=== PATIENT | female | born 1975 | race Caucasian/White ===

== ENCOUNTER 2022-12-17 16:23 | Outpatient (OUT) | payer BC, SELFPAY ==
--- NOTE | 2022-12-17 16:49 | XR_ITS ---
The [address] [address] Patient Name: CHRIS SAENZ MRN: [id number] date: 1975 Sex: F Assigned Patient Location: [facility] Current Patient Location: [facility] Accession/Order Number: [id number] Exam Date: 12/17/2022 17:02 Report Date: 12/17/2022 18:20 At the request of: MICHELLE HICKEY Procedure: XR knee LT 3V EXAM: Left knee HISTORY: . PAIN IN LEFT KNEE M25.562 . COMPARISON: None. TECHNIQUE: 3 views FINDINGS: No fracture or dislocation of left knee is noted. Small spurs are noted involving the knee. Surrounding soft tissues are unremarkable. XR/XR knee LT 3V IMPRESSION: 1. No acute bony abnormality left knee. 2. Early arthritic changes of the left knee. Electronically authenticated by: SILVER BA Date: 12/17/2022 18:20
== END 2022-12-17 16:24 | disposition home or self-care (01) ==
PROVIDERS: PCP Family Medicine; Visit Provider Family Medicine
DX: M25.562 Pain in left knee (principal)
CPT/HCPCS: 73562

== ENCOUNTER 2022-12-27 10:22 | Outpatient (OUT) | payer BC, SELFPAY ==
--- NOTE | 2022-12-27 11:33 | MR_ITS ---
The [address] [address] Patient Name: CHRIS SAENZ MRN: [id number] date: 1975 Sex: F Assigned Patient Location: MRI Current Patient Location: MRI Accession/Order Number: [id number] Exam Date: 12/27/2022 11:33 Report Date: 12/27/2022 21:12 At the request of: DERIAN BONILLA Procedure: MR knee LT wo con EXAM: MR knee LT wo con HISTORY: Left knee pain COMPARISON: Left knee x-ray 12/17/2022 TECHNIQUE: Multiplanar, multi sequential MRI sequences were performed FINDINGS: Again demonstrated is the large knee effusion. Small popliteal cyst is present. Scattered superficial subcutaneous soft tissue edema with no loculated collection, mass or cyst. Osteophytes are present off all articular surfaces of the medial compartment predominance. Osteophytes are present off the medial femoral condyle and tibial plateau. No fracture, dislocation or subluxation. Full-thickness cartilage loss of the inferior aspect of the medial patella facet with underlying subchondral cysts. Partial thickness chondral irregularity of the central patella apex cartilage (sagittal 10). Full-thickness chondral defect of the central trochlea adjacent partial thickness irregularities (sagittal 12 and axial 10). Full-thickness chondral irregularity of the meniscal weightbearing aspect of the medial femoral condyle with underlying marrow edema. Subchondral cysts within the medial posterior aspect of the medial tibial plateau with presumed overlying cartilage irregularities. The lateral femoral condyle and tibial plateau cartilage exhibit no gross visualized irregularity. Better visualized on the prior x-ray is chondrocalcinosis pyrophosphate deposition of the menisci bilaterally. The medial meniscus body is extruded into the medial gutter. Complex tearing of the medial meniscus body that extends into the umbilicus tear of the posterior horn that communicates with the inferior articular surface. No gross irregularity the root ligaments. Lateralization of the lateral meniscus body into the lateral gutter. Degenerative fraying of the lateral meniscus at the junction of the posterior body and posterior horn (coronal 21 and sagittal 6). The root ligaments are unremarkable. Mild chronic stress-related changes of the medial collateral ligament with no discrete acute irregularity. Anterior cruciate and posterior cruciate ligaments are unremarkable. No visualized irregularity of the lateral complex ligaments and tendons. No patella tilt or subluxation. Edema of Hoffa's fat. The patella tendon and visualized extensor mechanism are unremarkable. MR/MR knee LT wo con IMPRESSION: 1. Tearing of the medial and lateral menisci. 2. Full and partial thickness chondral irregularities of the patellofemoral and medial femorotibial compartment. 3. Large knee effusion. 4. Popliteal cyst. 5. 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 Electronically authenticated by: SILVER PARMAR Date: 12/27/2022 21:12
== END 2022-12-27 10:23 | disposition home or self-care (01) ==
LOC: MRI 10:22
PROVIDERS: PCP Family Medicine; Visit Provider Nurse Practitioner Family
DX: M25.562 Pain in left knee (principal); M71.22 Synovial cyst of popliteal space [Baker], left knee; S83.282A Other tear of lateral meniscus, current injury, left knee, initial encounter; S83.242A Other tear of medial meniscus, current injury, left knee, initial encounter
CPT/HCPCS: 73721

== ENCOUNTER 2024-01-04 08:53 | Emergency (ER) | payer SELFPAY ==
[2024-01-04] VITALS (18 sets, daily range): BP systolic 127–149; BP diastolic 83–91; PULSE 57–98; TEMP 37.1; O2SAT 97–100; BMI 26.6
--- NOTE | 2024-01-04 09:32 | ECG_ITS ---
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
--- NOTE | 2024-01-04 09:32 | CT_ITS ---
The [address] [address] Patient Name: CHRIS SAENZ MRN: [id number] date: 1975 Sex: F Assigned Patient Location: ED.MAIN Current Patient Location: Accession/Order Number: [id number] Exam Date: 01/04/2024 11:00 Report Date: 01/04/2024 11:42 At the request of: LEILA OROPEZA Procedure: CT abdomen pelvis w con EXAM: CT abdomen pelvis w con HISTORY: RUQ pain COMPARISON: None. TECHNIQUE: Axial CT imaging was performed through the abdomen and pelvis with intravenous contrast. Multiplanar reformats were performed. Dose reduction techniques were achieved by using automated exposure control and/or adjustment of mA and/or kV according to patient size and/or use of iterative reconstruction technique. FINDINGS: Lung bases: Bilateral paraseptal emphysema. Lung bases are clear. No pleural effusion. GI upper: Unremarkable. Liver: Normal size and contour. Gallbladder: No significant abnormality. No cholelithiasis. Biliary system: No intra or extrahepatic biliary ductal dilatation. Spleen: Normal size. Pancreas: Unremarkable. Adrenal glands: Normal adrenal glands. Kidneys/ureters: Normal contours. No hydronephrosis. No nephrolithiasis or ureterolithiasis. Vessels: No aneurysm. Lymph Nodes: No lymphadenopathy. Small bowel: No wall thickening or dilatation. Colon: No wall thickening or dilatation. Appendix: Appendix is identified with normal appearance. Peritoneal cavity: No free fluid or pneumoperitoneum. Lower : Hysterectomy. Otherwise unremarkable. The urinary bladder is unremarkable. Bones: No acute bony abnormality. Soft tissues: No acute finding. Additional findings: None. CT/CT abdomen pelvis w con IMPRESSION: No acute abnormality. Electronically authenticated by: HAYDEN RODGERS Date: 01/04/2024 11:42
--- NOTE | 2024-01-04 09:32 | XR_ITS ---
The [address] [address] Patient Name: CHRIS SAENZ MRN: [id number] date: 1975 Sex: F Assigned Patient Location: ED.MAIN Current Patient Location: ER Accession/Order Number: [id number] Exam Date: 01/04/2024 11:00 Report Date: 01/04/2024 11:27 At the request of: LEILA OROPEZA Procedure: XR chest 2V PROCEDURE: XR chest 2V DATE: 01/04/2024 10:00 AM CDT COMPARISONS: None. CLINICAL INDICATION: 48 years Female right sided chest pain FINDINGS: The cardiomediastinal silhouette and pulmonary vasculature are within normal limits. There is slight scattered increased interstitial markings throughout all lung daniel consistent with mild chronic lung changes. There is no evidence of pleural effusion or pneumothorax. XR/XR chest 2V IMPRESSION: Evidence of mild chronic lung changes. Chest radiograph is otherwise within normal limits. Electronically authenticated by: SOFÍA BOONE Date: 01/04/2024 11:27
[2024-01-04] MEDS: KETOROLAC TROMETHAMINE 30 MG/ML VIAL IVP (09:51)
[2024-01-04] MEDS: ONDANSETRON PF 4 MG/2 ML VIAL IV (09:51)
[2024-01-04] MEDS: 0.9 % SODIUM CHLORIDE 1,000 ML 999 ML IV (09:52)
[2024-01-04 09:55] LABS: Basophils Absolute Auto 0.1 10^3/uL (0.0-0.1); Basophils Percent Auto 1.2 % (0.2-2.0); Eosinophils Absolute Auto 0.3 10^3/uL (0.0-0.7); Eosinophils Percent Auto 4.4 % (0.9-7.0); Hematocrit 45.3 % (36.0-48.0); Hemoglobin 14.8 g/dL (12.0-16.0); Immature Granulocytes Abs Auto 0.02 10^3/uL (0.00-0.03); Immature Granulocytes Pct Auto 0.3 % (0.0-0.5); Lymphocytes Absolute Auto 2.4 10^3/uL (1.2-3.8); Lymphocytes Percent Auto 37.3 % (20.5-60.0); Mean Corpuscular HGB Conc 32.7 g/dL (29.9-35.2); Mean Corpuscular Hemoglobin 30.2 pg (26.7-34.0); Mean Corpuscular Volume 92.4 fL (81.0-99.0); Mean Platelet Volume 8.6 fL (9.5-13.5); Monocytes Absolute Auto 0.7 10^3/uL (0.3-0.8); Monocytes Percent Auto 10.3 % (1.7-12.0); Neutrophils Percent Auto 46.5 % (43.0-75.0); Platelet Count 274 10^3/uL (150-450); Red Cell Distribution Width 13.3 % (11.0-15.0); White Blood Count 6.4 10^3/uL (4.0-11.0)
--- NOTE | 2024-01-04 10:24 | ED_ITS ---
HPI HPI - General Adult General Chief complaint: Back Pain/Injury Stated complaint: TORSO PAIN Time Seen by Provider: 01/04/24 09:16 Source: patient Mode of arrival: walk-in Limitations: no limitations History of Present Illness HPI narrative: 48-year-old female to the emergency department chief complaint of right flank/right upper quadrant pain. She reports symptoms started approximately 24 hours ago. Associated mild nausea without vomiting. No chest pain or shortness of breath. No injuries. She denies any dysuria, urgency, hematuria. She denies . She denies any fever, sweats, chills. Reports the pain is worse with movement. She has never had symptoms like this before.No medications taken prior to arrival. She did drink some liquids this morning. Related Data Previous Rx's ?Medication ?Instructions ?Recorded cyclobenzaprine 10 mg tablet 10 mg PO BID PRN muscle spasm #10 01/04/24 tabs naproxen 500 mg tablet 500 mg PO BID PRN pain #14 tabs 01/04/24 Allergies Allergy/AdvReac Type Severity Reaction Status Date / Time acetaminophen [From Percocet] Allergy Intermediate Rash Verified 01/04/24 09:00 oxycodone [From Percocet] Allergy Intermediate Rash Verified 01/04/24 09:00 Opioid HPI Opioid Management Most Recent Opioid Data: Last ED Pain Assessment 01/04/24 11:27 Review of Systems ROS Status of ROS 10 or more systems reviewed and unremark able except as noted in history and below Exam Narrative Exam Narrative: VITALS: I have reviewed the triage vital signs. GENERAL: Well developed, well appearing adult in no acute distress. NEURO: Alert and oriented. Moves all extremities. Face is symmetric and expressive. EYES: PERRL. No scleral icterus or conjunctival injection. No discharge. HENT: Normocephalic, atraumatic. Hearing is grossly intact. Nares grossly patent and without discharge. Mucous membranes moist. NECK: No JVD. Patient moves neck without restriction. CARDIO: Rhythm regular. Normal rate. No murmur, rub, or gallop. Pulses equal bilaterally in the upper and lower extremity. No lower extremity edema. PULM: Lungs clear to auscultation in all daniel. No wheezes, rales, or rhonchi. No conversational dyspnea. No splinting, stridor, or accessory muscle use. GI/: Abdomen is soft. Mild right upper quadrant tenderness. No CVA tenderness. Normoactive bowel sounds. EXTREMITIES: Symmetric muscle bulk. No joint swelling. No clubbing, cyanosis, or deformity. SKIN: Warm and dry. Normal turgor. No rash or lesions appreciated. PSYCH: Mood, affect, and interaction is appropriate to the setting. Constitutional Vital Signs, click to edit/add: Last Vital Signs Temp 98.7 F 01/04/24 08:57 Pulse 60 01/04/24 11:23 Resp 25 H 01/04/24 11:23 BP 142/91 H 01/04/24 11:23 Pulse Ox 100 01/04/24 11:23 O2 Del Method Room Air 01/04/24 09:03 Course Vital Signs Vital signs: Vital Signs Temperature 98.7 F 01/04/24 08:57 Pulse Rate 83 01/04/24 08:57 Respiratory Rate 18 01/04/24 08:57 Blood Pressure 149/88 H 01/04/24 08:57 Pulse Oximetry 98 01/04/24 08:57 Oxygen Delivery Method Room Air 01/04/24 08:57 Temperature 98.7 F 01/04/24 08:57 Pulse Rate 60 01/04/24 11:23 Respiratory Rate 25 H 01/04/24 11:23 Blood Pressure 142/91 H 01/04/24 11:23 Pulse Oximetry 100 01/04/24 11:23 Oxygen Delivery Method Room Air 01/04/24 09:03 Medical Decision Making [facility] Narrative Medical decision making narrative: Well-appearing 48-year-old female to the emergency department chief complaint of pain in the right upper abdomen radiating around to the back. Vital stable, the patient is afebrile. Basic labs ordered, hepatic function and lipase. Will order urinalysis. CT scan abdomen pelvis is ordered for evaluation of the gallbladder and for kidney stone. Toradol and Zofran are given for symptoms. Patient agrees with this plan. PERC negative, effectively ruling out VTE in this low risk patient. HEART score 1, low risk. Chest x-ray without any acute findings. CT scan without acute findings. Lab work is unremarkable. No evidence of urinary tract infection. EKG without evidence of ischemia. Troponin is very low with onset greater than 3 hours, effectively ruling out ACS per ECS guidelines. Patient reexamined. Pain responded significantly to Toradol. She feels much improved. Naproxen and Flexeril for treatment at home. She will be referred back to Dr. Savage for repeat evaluation. Suspect musculoskeletal etiology. Expected clinical course discussed. Return precautions were discussed. All questions were answered. Patient was discharged home. Medical Records Medical records reviewed: Yes I reviewed the patient's medical records Lab Data Lab results reviewed: Yes I reviewed the patient's lab results Labs: Lab Results 01/04/24 01/04/24 Range/Units 09:46 10:40 WBC 6.4 (4.0-11.0) 10^3/uL RBC 4.90 (4.20-5.40) 10^6/uL Hgb 14.8 (12.0-16.0) g/dL Hct 45.3 (36.0-48.0) % MCV 92.4 (81.0-99.0) fL MCH 30.2 (26.7-34.0) pg MCHC 32.7 (29.9-35.2) g/dL RDW 13.3 (11.0-15.0) % Plt Count 274 (150-450) 10^3/uL MPV 8.6 L (9.5-13.5) fL Neut % (Auto) 46.5 (43.0-75.0) % Lymph % (Auto) 37.3 (20.5-60.0) % Ashley % (Auto) 10.3 (1.7-12.0) % Eos % (Auto) 4.4 (0.9-7.0) % Baso % (Auto) 1.2 (0.2-2.0) % Neut # (Auto) 3.0 (1.4-6.5) 10^3/uL Lymph # (Auto) 2.4 (1.2-3.8) 10^3/uL Ashley # (Auto) 0.7 (0.3-0.8) 10^3/uL Eos # (Auto) 0.3 (0.0-0.7) 10^3/uL Baso # (Auto) 0.1 (0.0-0.1) 10^3/uL Abs Immat Gran (auto) 0.02 (0.00-0.03) 10^3/uL Imm/Tot Granulo (auto) 0.3 (0.0-0.5) % Sodium 143 (136-145) mmol/L Potassium 4.7 (3.5-5.1) mmol/L Chloride 107 (98-107) mmol/L Carbon Dioxide 29.3 (21.0-32.0) mmol/L Anion Gap 11.4 BUN 9.0 (7.0-18.0) mg/dL Creatinine 0.86 (0.55-1.02) mg/dL Est GFR ( Amer) >60 (>=60) Est GFR (Non-Af Amer) >60 (>=60) BUN/Creatinine Ratio 10.5 Glucose 105 (74-106) mg/dL Calcium 9.3 (8.5-10.1) mg/dL Total Bilirubin 0.4 (0.2-1.0) mg/dL AST 20 (15-37) U/L ALT 30 (14-59) U/L Alkaline Phosphatase 90 (46-116) U/L Troponin I High Sens <4.0 L (4.0-51.3) pg/mL Total Protein 7.6 (6.4-8.2) g/dL Albumin 3.6 (3.4-5.0) g/dL Globulin 4.0 g/dL Albumin/Globulin Ratio 0.9 Lipase 57.0 (16.0-77.0) U/L Urine Color Lt. yellow (YELLOW) Urine Clarity Clear (CLEAR) Urine pH 6.5 (5.0-9.0) Ur Specific Eclectic 1.025 (1.005-1.025) Urine Protein Negative (NEG/TRACE) mg/dL Urine Glucose (UA) Negative (NEGATIVE) mg/dL Urine Ketones Negative (NEGATIVE) mg/dL Urine Occult Blood Negative (NEGATIVE) Urine Nitrite Negative (NEGATIVE) Urine Bilirubin Negative (NEGATIVE) Urine Urobilinogen 0.2 (0.2-1.0) EU/dL Ur Leukocyte Esterase Negative (NEGATIVE) Discharge Plan Discharge Stand Alone Forms: Portal Instructions Chief Complaint: Back Pain/Injury Clinical Impression: Rib pain on right side Patient Disposition: Home, Self-Care Time of Disposition Decision: 12:14 Condition: Good Mode of Transportation: Private Vehicle Prescriptions / Home Meds: New cyclobenzaprine 10 mg tablet 10 mg PO BID PRN (Reason: muscle spasm) Qty: 10 0RF naproxen 500 mg tablet 500 mg PO BID PRN (Reason: pain) Qty: 14 0RF Print Language: Slovenian Instructions: Chest Pain (ED) Additional Instructions: Call the office of your primary care doctor to arrange for follow-up within the above-stated timeframe. Your ED visit was focused on your acute issue and does not replace primary care. You should review your labs, imaging, and diagnoses from this ED visit with your primary care physician. There may be non-emergent/ incidental findings that need further evaluation. You should review your vital signs including blood pressure with your PCP. If you were prescribed medications you should discuss possible side-effects and drug interactions with your pharmacist. Call 911 or go to the nearest Emergency Department if you develop any new or worsening symptoms. Seek immediate medical attention if you develop: worsening abdominal pain, new or worsening nausea, new or worsening vomiting, new or worsening diarrhea, chest pain, shortness of breath, pain with urination, problems urinating, fever, chills, weakness, or any new or worsening symptoms. Referrals: Shun Savage MD [Primary Care Provider] - 1 week
[2024-01-04 10:25] LABS: Carbon Dioxide 29.3 mmol/L (21.0-32.0); Chloride 107 mmol/L (98-107); Potassium 4.7 mmol/L (3.5-5.1); Sodium 143 mmol/L (136-145)
[2024-01-04 10:26] LABS: Alanine Aminotransferase 30 U/L (14-59); Albumin Globulin Ratio 0.9; Albumin Level 3.6 g/dL (3.4-5.0); Alkaline Phosphatase 90 U/L (46-116); Anion Gap 11.4; Aspartate Amino Transferase 20 U/L (15-37); BUN Creatinine Ratio 10.5; Bilirubin Total 0.4 mg/dL (0.2-1.0); Calcium 9.3 mg/dL (8.5-10.1); Estimated GFR (African America >60 (>=60); Estimated GFR (Non-African Ame >60 (>=60); Glucose 105 mg/dL (74-106); Total Protein 7.6 g/dL (6.4-8.2); Troponin I High Sensitivity <4.0 pg/mL (4.0-51.3)
[2024-01-04 10:49] LABS: Bilirubin Urine NEGATIVE (NEGATIVE); Blood Urine NEGATIVE (NEGATIVE); Clarity Urine CLEAR (CLEAR); Color Urine LT. YELLOW (YELLOW); Glucose Urine UA NEGATIVE (NEGATIVE); Ketones Urine NEGATIVE (NEGATIVE); Leukocyte Esterase Urine NEGATIVE (NEGATIVE); Nitrite Urine NEGATIVE (NEGATIVE); Protein Urine NEGATIVE (NEG/TRACE); Specific Gravity Urine 1.025 (1.005-1.025); Urobilinogen Urine 0.2 EU/dL (0.2-1.0); pH Urine 6.5 (5.0-9.0)
[2024-01-04 10:50] LABS: Urine Microscopic Indicated NO
== END 2024-01-04 12:24 | disposition home or self-care (01) ==
PROVIDERS: Emergency Provider Student in an Organized Health Care Education/Training Program; PCP Family Medicine
DX: R07.81 Pleurodynia (principal)
CPT/HCPCS: 36415; 71046; 74177; 80053; 81003; 83690; 84484; 85025; 93005; 96374; 96375; 99285; J1885; J2405; Q9967

== ENCOUNTER 2024-01-10 07:58 | Outpatient (OUT) | payer SELFPAY ==
--- OUTSIDE RECORDS SUMMARY | 2024-01-10 08:03 | XMS_ITS | CCD ---
Author Organization [facility] Care Team Providers Care Fuel Cell Binder Name Role Phone DR SHAZIA GUADALUPE Admitting Unavailable COLLINS, DR MCCRAY Attending Unavailable [facility], DR YIN Primary Care Unavailable COLLINS, DR MCCRAY Consulting Unavailable Shun Savage Primary Care Physician Alexandre Mariscal Unavailable Unavailable Primary Care Provider UnavailJan Mccloud Attending Unavailable Jan WESTFALL Attending Unavailable Abhishek Rico Attending Unavailable SELF, SELF Referring Unavailable RIVERA BRIAN L Attending Unavailable BRIAN RIVERA Attending Unavailable RIVERA, BRIAN L Admitting Unavailable BRIAN RIVERA Attending Unavailable DOUG TRIANA Referring Unavailable RE HARVEY Attending Unavailable RIVERA, BRIAN L Referring Unavailable NANI BEJARANO Attending Unavailable RIVERA, BRIAN L Referring Unavailable RIVERA, BRIAN L Attending Unavailable SELF, SELF Referring Unavailable BRIAN RIVERA Attending Unavailable SELF, SELF Referring Unavailable MD Brian Rivera Attending Provider MD Shun Savage Primary Care Provider [phone] Brian Rivera Attending Unavailable Brian Rivera Admitting Unavailable Shun Savage Primary Care Unavailable Allergies Allergy Classification Reported Allergen(s) Allergy Type Date of Onset Reaction(s) Facility (1 source) Acetaminophen / oxyCODONE Drug Allergy 0 [facility] Repository (7 sources) Acetaminophen / oxyCODONE Drug Allergy 3 hives, Itching [facility] [email or web address] Other (8 sources) Morphine Drug Allergy 3 hives, Itching, Rash [facility] [email or web address] Other (2 sources) Acetaminophen; Translations: [acetaminophen] Drug Allergy 3 [facility] (2 sources) oxyCODONE; Translations: [oxycodone] Drug Allergy 3 [facility] (1 source) Morphine Drug Allergy 3 [facility] Repository Medications Current Medications Medication Drug Class(es) Dates Sig (Normalized) Sig (Original) acetaminophen 325 mg / HYDROcodone bitartrate 5 mg oral tablet (4 sources) Opioid Agonist Start: 04-02-2023 End: 04-07-2023 take 1-2 tablets by mouth every eight hours as needed for pain hydroCODone-aceta minophen ([place]) 5-325 MG tablet Indications: Tear of medial meniscus of left knee, unspecified tear type, unspecified whether old or current tear, subsequent encounter Take 1-2 by mouth every 8 hours as needed for pain. 30 tablet 04/02/2023 Active aspirin 325 mg oral tablet (4 sources) Platelet Aggregation Inhibitor, Nonsteroidal Anti-inflammatory Drug Start: 04-02-2023 take 1 tablet by mouth once daily Aspirin 325 MG tablet Take 1 by mouth daily. 42 tablet 04/02/2023 Active DISABILITY PLACARD (4 sources) Start: 04-02-2023 End: 07-06-2023 DISABILITY PLACARD End Date: 07/06/2023 1 Each 04/02/2023 07/06/2023 Active Start: 04-02-2023 End: 07-06-2023 DISABILITY PLACARD End Date: 07/06/2023 1 Each 0 04/02/2023 07/06/2023 Active naloxone hydrochloride 40 mg/ml nasal spray (4 sources) Opioid Antagonist Start: 04-02-2023 End: 04-02-2023 naloxone 4 MG/0.1ML 1 spray by Nasal route once for 1 dose. [place] into the nose as directed. Call 911. If no response in 2 minutes use a new nasal spray in other nostril. Repeat until help arrives. 1 Each 04/02/2023 Active promethazine hydrochloride 12.5 mg oral tablet (4 sources) Phenothiazine Start: 04-02-2023 take 1-2 tablets by mouth every eight hours as needed for nausea Promethazine HCl 12.5 MG tablet Take 1-2 by mouth every 8 hours as needed for nausea. 20 tablet 04/02/2023 Active traMADol hydrochloride 50 mg oral tablet (5 sources) Opioid Agonist Start: 04-02-2023 End: 04-07-2023 take 1-2 tablets by mouth every eight hours as needed for pain traMADol 50 MG tablet Indications: Tear of medial meniscus of left knee, unspecified tear type, unspecified whether old or current tear, subsequent encounter Take 1-2 by mouth every 8 hours as needed for pain. 30 tablet 04/02/2023 Active Completed/Discontinued Medications Medication Drug Class(es) Dates Sig (Normalized) Sig (Original) acetaminophen 325 mg oral tablet (1 source) Start: 04-02-2023 End: 04-02-2023 Acetaminophen (TYLENOL) tablet 975 mg calcium chloride 0.0014 meq/ml / potassium chloride 0.004 meq/ml / sodium chloride 0.103 meq/ml / sodium lactate 0.028 meq/ml injectable solution (1 source) Start: 04-02-2023 End: 04-02-2023 Lactated ringers IV solution 2 ml fentaNYL 0.05 mg/ml injection (1 source) Opioid Agonist Start: 04-02-2023 End: 04-02-2023 fentaNYL (SUBLIMAZE) injection 25 mcg 1 ml haloperidol 5 mg/ml prefilled syringe (1 source) Typical Antipsychotic Start: 04-02-2023 End: 04-02-2023 Haloperidol lactate (HALDOL) injection 1 mg 1 ml hydrALAZINE hydrochloride 20 mg/ml injection (1 source) Arteriolar Vasodilator Start: 04-02-2023 End: 04-02-2023 hydrALAZINE (APRESOLINE) injection 2 mg 1 ml HYDROmorphone hydrochloride 1 mg/ml cartridge (1 source) Opioid Agonist Start: 04-02-2023 End: 04-02-2023 HYDROmorphone (DILAUDID) injection 0.2 mg labetalol hydrochloride 5 mg/ml injectable solution (1 source) beta-Adrenergic [place] Start: 04-02-2023 End: 04-02-2023 Labetalol (NORMODYNE) injection 5 mg 1 ml meperidine hydrochloride 25 mg/ml cartridge (1 source) Opioid Agonist Start: 04-02-2023 End: 04-02-2023 Meperidine (DEMEROL) injection 12.5 mg 2 ml ondansetron 2 mg/ml injection (1 source) Serotonin-3 Receptor Antagonist Start: 04-02-2023 End: 04-02-2023 Ondansetron 4mg/2ml (ZOFRAN) injection 4 mg Problems Active Problems Problem Classification Problem Date Documented Date Episodic/Chronic Immunizations and screening for infectious disease (1 source) Encounter for screening for human papillomavirus (HPV); Translations: [ENC SCREENING HUMAN PAPILLOMAVIRUS] Onset: 07-05-2021 Episodic Joint disorders and dislocations; trauma-related (12 sources) Other tear of medial meniscus, current injury, left knee, initial encounter; Translations: [Tear of meniscus of knee] Onset: 03-04-2023 Episodic Osteoarthritis (3 sources) Osteoarthritis of left knee joint; Translations: [Unilateral primary osteoarthritis, left knee] Onset: 07-01-2023 07-01-2023 Chronic Other connective tissue disease (1 source) Quadriceps weakness; Translations: [Muscle weakness (generalized)] 07-01-2023 Episodic Other connective tissue disease (2 sources) Muscle weakness (generalized); Translations: [Muscle weakness (generalized)] Onset: 07-01-2023 Episodic Other injuries and conditions due to external causes (1 source) Other injury of unspecified body region, initial encounter Episodic Other screening for suspected conditions (not mental disorders or infectious disease) (4 sources) Encounter for screening for malignant neoplasm of cervix; Translations: [ENC SCREENING MALIG NEOPLASM CERV] Onset: 07-03-2021 Episodic Residual codes; unclassified (2 sources) Other specified postprocedural states; Translations: [Other specified postprocedural states] Onset: 07-01-2023 Episodic Past or Other Problems Problem Classification Problem Date Documented Da te Episodic/Chronic Other non-traumatic joint disorders (4 sources) Pain in left knee; Translations: [Pain in joint, lower leg] Onset: 03-04-2023 03-03-2023 Episodic Results Test Name Value Interpretation Reference Range Facil ity Consenton 03-25-2023 Consent [id number]#1.0 0TIFF Normal [facility] Registrationon 03-25-2023 Registration [id number]#1.0 0TIFF Normal [facility] Consenton 05-16-2022 Consent [id number]#1. 00CD:127 [facility] In office Testingon 05-16-20 22 In office Testing [id number]#1.0 0CD:127 [facility] In office Testing [id number]#1.0 0CD:127 [facility] Registrationon 05-16-2022 Registration [id number]#1. 00CD:127 [facility] Consenton 05-07-2022 Consent [id number]#1. 00CD:127 [facility] Registrationon 05-07-2022 Registration [id number]#1. 00CD:127 [facility] PAP ACOG PANEL 2: 30 to 65on 07-05-2021 . . Normal [facility] Comment on above: Result Comment: Perf ormed at: WB Performed By: #### [id number] #### [facility] [address] [address] [address] Nadya Lezama Age Gdln ACOG Testing - Normal [facility] Comment on above: Performed By: #### [id number] #### [facility] [address] [address] [address] Nadya Lezama DIAGNOSIS: Comment Normal [facility] Comment on above: Result Comment: NEGA TIVE FOR INTRAEPITHELIAL LESION OR MALIGNANCY. Performed at: WB Performed By: #### [id number] #### [facility] [address] [address] [address] Nadya Lezama HPV Aptima Negative Normal Negative [facility] Comment on above: Result Comment: This nucleic acid amplification test detects fourteen high-risk HPV types (16,18,31,33,35,39,45,51,52,56,58,59,66,68) without differentiation. Performed at: =G Performed By: #### [id number] #### [facility] [address] [place] [address] Dr. Nadya Lezama Methodology: Comment Normal [facility] Comment on above: Result Comment: This liquid based ThinPrep(R) pap test was screened with the use of an image guided system. Performed at: WB Performed By: #### [id number] #### [facility] [address] [place] [address] Dr. Nadya Lezama Note: Comment Normal [facility] Comment on above: Result Comment: The Pap smear is a screening test designed to aid in the detection of premalignant and malignant conditions of the uterine cervix. It is not a diagnostic procedure and should not be used as the sole means of detecting cervical cancer. Both false-positive and false-negative reports do occur. . Performed at: WB Performed By: #### [id number] #### [facility] [address] [place] [address] Dr. Nadya Lezama Performed by: Comment Normal [facility] Comment on above: Result Comment: Rui Archuleta, Sample Maker (ASCP) Performed at: WB Performed By: #### [id number] #### [facility] [address] [place] [address] Dr. Nadya Lezama Specimen adequacy: Comment Normal [facility] Comment on above: Result Comment: Sati sfactory for evaluation. No endocervical cells are present. This is consistent with a history of hysterectomy. Performed at: WB Performed By: #### [id number] #### [facility] [address] [place] [address] Dr. Nadya Lezama Vital Signs Date Time Vital Sign Value Performing Clinician Facility 04-02-2023 13:40-0500 Diastolic blood pressure 66 mm[Hg] Brian Rivera MD Work Phone: [facility] 04-02-2023 13:40-0500 Heart rate 65 /min Brian Rivera MD Work Phone: [facility] 04-02-2023 13:40-0500 Respiratory rate 16 /min Brian Rivera MD Work Phone: [facility] 04-02-2023 13:40-0500 SaO2% (BldA) [Mass fraction] 99 % Brian Rivera MD Work Phone: [facility] 04-02-2023 13:40-0500 Systolic blood pressure 104 mm[Hg] Brian Rivera MD Work Phone: [phone] [place] [address] 04-02-2023 13:11-0500 Body temperature 97.2 [degF] Brian Rivera MD Work Phone: [phone] [place] [address] 04-02-2023 10:05-0500 Body mass index (BMI) [Ratio] 29.95 kg/m2 Brian Rivera MD Work Phone: [facility] 04-02-2023 10:05-0500 Body weight 89.36 kg Brian Rivera MD Work Phone: [facility] 03-04-2023 11:10-0400 Body height 172.7 cm Brian Rivera MD Work Phone: [facility] 03-04-2023 11:10-0400 Body mass index (BMI) [Ratio] 30.04 kg/m2 Brian Rivera MD Work Phone: [facility] 03-04-2023 11:10-0400 Body weight 89.63 kg Brian Rivera MD Work Phone: [facility] 02-06-2023 09:00-0400 Body height 172.72 cm Alexandre Olexa Other [facility] Other 02-06-2023 09:00-0400 Body mass index (BMI) [Ratio] 25.09 kg/m2 Alexandre Olexa Other [facility] Other 02-06-2023 09:00-0400 Body weight 74.84 kg Alexandre Olexa Other [facility] Other Encounters Encounter Date Encounter Type Care Provider Facility Start: 07-01-2023 ambulatory BRIAN Casarez ty:[facility] Start: 07-01-2023 End: 07-01-2023 Postop follow up visit related to original px Brian Rivera MD Work Phone: [facility] Comment on above: S/P knee surgery (Pr imary Dx); Localized osteoarthritis of left knee; Quadriceps weakness Start: 06-02-2023 End: 06-02-2023 ambulatory MD Shun Savage Work Phone: [facility] Work Phone: Start: 06-02-2023 End: 06-02-2023 Discharged Recurring MD Shun Savage Work Phone: [facility] [place] Work Phone: Start: 05-20-2023 ambulatory BRIAN Becerrai ty:[facility] Start: 05-20-2023 End: 05-20-2023 Postop follow up visit related to original px Brian Rivera MD Work Phone: [facility] Comment on above: S/P knee surgery (Pr imary Dx) Start: 04-15-2023 ambulatory NANI BEJARANO Facility :[facility] Start: 04-15-2023 End: 04-15-2023 Postop follow up visit related to original px Nani Hipolito Bejarano PAC Work Phone: [facility] Comment on above: S/P knee surgery (Pr imary Dx); Tear of medial meniscus of left knee, unspecified tear type, unspecified whether old or current tear, subsequent encounter; Tear of lateral meniscus of left knee, unspecified tear type, unspecified whether old or current tear, subsequent encounter Start: 04-02-2023 End: 04-02-2023 ambulatory BRIAN RIVERA Facility:[facility] Start: 04-02-2023 End: 04-02-2023 Subsequent hospital visit by physician Brian Rivera MD Work Phone: [facility] [place] Comment on above: Tear of meniscus of left knee, unspecified meniscus, unspecified tear type, unspecified whether old or current tear Start: 03-25-2023 End: 03-26-2023 ambulatory Jan WESTFALL Facility:[facility] Start: 03-10-2023 ambulatory RE HARVEY Facility :[facility] Start: 03-10-2023 Encounter for other preprocedural examination RE HARVEY Facility:[facility] Start: 03-04-2023 ambulatory BRIAN Casarez ty:[facility] Start: 03-04-2023 End: 03-04-2023 Office outpatient visit 25 minutes Brian Rivera MD Work Phone: [facility] Comment on above: Tear of meniscus of left knee, unspecified meniscus, unspecified tear type, unspecified whether old or current tear (Primary Dx); Left knee pain, unspecified chronicity Start: 03-04-2023 End: 03-04-2023 Subsequent hospital visit by physician Brian Rivera MD Work Phone: [facility] Comment on above: Canceled (Scheduling Error) Start: 03-03-2023 ambulatory SELF SELF Facility:[facility] Start: 02-06-2023 End: 02-06-2023 ambulatory Alexandre Mariscal Other [facility] Other Start: 02-06-2023 Encounter for other preprocedural examination Alexandre Mariscal [facility] Start: 02-06-2023 Office outpatient ne w 45 minutes Alexandre Mariscal [facility] Start: 01-07-2023 End: 01-25-2023 Pre-admission assessment Eusebio Castaneda [facility] Start: 05-16-2022 End: 05-17-2022 ambulatory Abhishek Rico [facility] Start: 04-10-2022 End: 04-11-2022 ambulatory Jan WESTFALL Facility:[facility] Start: 07-03-2021 End: 07-03-[address] SHAZIA GUADALUPE Facility:[facility] Procedures Date Procedure Procedure Detail Performing Clinician History of operative procedure on knee S/P knee surgery Nani RODRIGUEZ Work Phone: History of operative procedure on knee S/P knee surgery Brian Rivera MD Work Phone: History of operative procedure on knee S/P knee surgery Brian Rivera MD Work Phone: Plan of Treatment Date Care Activity Detail Author Start: 07-01-2023 End: 07-01-2023 Patient encounter procedure 07/01/2023 8:15 AM EST Office Visit [facility] [address] [place], [place] [id number] Brian Rivera MD [address] [place] [address] [phone] [facility] Start: 05-20-2023 End: 05-20-2023 Patient encounter procedure 05/20/2023 8:15 AM EST Office Visit [facility] [address] [place] [phone] Brian Rivera MD [address] [place] [address] [phone] [facility] Start: 04-15-2023 End: 04-15-2023 Patient encounter procedure 04/15/2023 9:20 AM EST Office Visit [facility] [address] [place] [address] [phone] Nani Bejarano, JENNIFER [address] [place] [address] [facility] Start: 04-02-2023 Subsequent hospital visit by physician 04/02/2023 Hospital Encounter [facility]patient [facility] [address] [place] [address] Brian Rivera MD [address] [place] [address] [phone] Tear of meniscus of left knee, unspecified meniscus, unspecified tear type, unspecified whether old or current tear [facility] Comment on above: Tear of meniscus of left knee, unspecifi ed meniscus, unspecified tear type, unspecified whether old or current tear Start: 04-02-2023 End: 04-02-2023 Admission to same day surgery center 04/02/2023 1:40 PM EST - 04/02/2023 2:55 PM EST Surgery [facility] [address] [place] [address] Brian Rivera MD [address] [place] [address] LEFT KNEE---MENISCUS SURGERY, PARTIAL MENISCECTOMY VS REPAIR [facility] Comment on above: LEFT KNEE---MENISCUS SURGERY, PARTIAL ME NISCECTOMY VS REPAIR Start: 04-02-2023 End: 04-02-2023 Arthrs kne surg w/meniscectomy med/lat w/shvg ARTHROSCOPY KNEE W/ MENISCECTOMY Tear of meniscus of left knee, unspecified meniscus, unspecified tear type, unspecified whether old or current tear 04/02/2023 1:40 PM EST [facility] Start: 03-10-2023 End: 03-10-2023 ambulatory 03/10/2023 8:30 AM EDT Pre-Operative Nurse Assessment Telehealth Pre Procedure Preparation [address] [place] [address] Re Harvey, CHRIS Telehealth Pre Procedure Preparation Start: 01-17-2023 COVID-19 VACCINE ( season) COVID-19 VACCINE ( season) [facility] Start: 01-17-2023 Influenza vaccination INFLUENZA VACCINE (#1) [facility] Start: 2020 Screening for malignant neoplasm of colon COLORECTAL CANCER SCREENING DISCUSSION [facility] Start: 2015 Lipid panel LIPID SCREENING [facility] Start: 2015 Screening for malignant neoplasm of breast MAMMOGRAM SCREENING DISCUSSION [facility] Start: 1996 Screening for malignant neoplasm of cervix CERVICAL CANCER SCREENING DISCUSSION [facility] Start: 1994 Hepatitis B vaccination HEP B VACCINE (1 of 3 - 19+ 3-dose series) [facility] Start: 1994 Third diphtheria, tetanus and acellular pertussis (DTaP) vaccination TDAP (ADULT) [facility] Start: 1990 HIV screening HIV SCREENING DISCUSSION [facility] Start: 1981 PNEUMOCOCCAL VACCINE SERIES (1 - PCV) PNEUMOCOCCAL VACCINE SERIES (1 - PCV) [facility] Start: 1981 PNEUMOCOCCAL VACCINE SERIES (1 of 2 - PCV) PNEUMOCOCCAL VACCINE SERIES (1 of 2 - PCV) [facility] Start: 1975 COVID-19 VACCINE (#1) COVID-19 VACCINE (#1) [facility] Start: 1975 Hepatitis B vaccination HEP B VACCINE (1 of 3 - 3-dose series) [facility] Start: 1975 Hepatitis C screening HEPATITIS C VIRUS SCREENING [facility] Start: 1975 Tetanus vaccination TETANUS [facility] ARTHROSCOPY KNEE W/ MENISCECTOMY ARTHROSCOPY KNEE W/ MENISCECTOMY Tear of meniscus of left knee, unspecified meniscus, unspecified tear type, unspecified whether old or current tear [facility] End: 03-04-2023 XR Knee - bilateral Views W standing XR KNEE LEFT WITH BILATERAL STANDING 1 VIEW Imaging Routine Left knee pain, unspecified chronicity 1 Occurrences starting 03/04/2023 until 03/04/2023 [facility] Work Phone: Comment on above: 1 Occurrences starting 03/04/2023 until 03/04/2023 Payers Date Payer Category Payer Self-pay 2023 Unknown BRIEN REDD O PPO POS [id number] 2023-Present [address] [place] [address] [id number] 2023 [employer] Blue Shield [id number] 1975 Unknown [id number] 93 1975 Unknown [id number] 94 1975 Unknown [id number] 94 1975 Unknown [id number] 94 1975 Unknown [id number] 94 1975 Unknown [id number] 94 1975 Unknown [id number] 94 1975 Unknown [id number] 94 1975 Unknown [id number] 94 1959 Unknown [id number] Unknown [id number] 31 Social History Date Type Detail Facility Tobacco smoking status [facility] Start: 03-04-2023 End: 05-20-2023 Sex Assigned At Female [facility] Start: 03-04-2023 End: 03-10-2023 Tobacco smoking status ALIS Smokes tobacco daily [facility] History of tobacco use Cigarette Smoker [facility] Start: 03-04-2023 End: 03-10-2023 Tobacco use and exposure Smokeless tobacco non-user [facility] Start: 03-04-2023 End: 07-01-2023 Alcohol intake Ex-drinker (finding) [facility] Start: 03-04-2023 End: 05-20-2023 History of Social function [facility] Start: 1975 Sex Assigned At Not on file O SANCHEZ [facility] Start: 1975 Sex Assigned At Female F [facility] Clinical Notes 02-06-2023 to 07-01-2023 Brian Rivera MD - 07/01/2023 8:15 AM Tyler Rivera MD - 05/20/2023 8:15 AM Rica Amor MD - 05/20/2023 8:15 AM JENNIFER Good - 04/15/2023 9:20 AM ESTDischatyron Instructions Note Date & Type Note Facility 07-01-2023 History of Present illness Narrative DATE OF SURGERY 04/02/2023 SUBJECTIVE Chris is now 3 months S/P LEFT KNEE PMM, PLM, CHONDROPLASTY PF JOINT. Physical therapy in progress: Yes, doing mostly deep tissue massage and ROM exercises. Using narcotic pain medication: No Current problems or concerns: No major issues but she has slightly limited extension. She reports some anterior knee pain with crepitation at the patellofemoral joint. PHYSICAL EXAM Left knee Exam: The incisions are benign--clean,dry, and intact with no erythema, warmth, purulent drainage, or other signs of infection. 2+ distal pulses and sensation intact. 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 PLAN -Surgical findings and procedures were reviewed with the patient -Continue HEP and PT per General Debridement Arthroscopy protocol -TENS/ NMES unit ordered for quad strengthening. -RICE for swelling control. -Submit request for approval of EMMANUEL injections. -Follow up once EMMANUEL injections are approved. MEDICAL NECESSITY FOR VISCOSUPPLEMENTATION FOLLOWS: -Patient has tried 3 or more oral / topical analgesics without lasting relief (including NSIADs and Tylenol), has made efforts for weight loss through home exercise program without lasting relief, has done formal rehabilitation and / or physician prescribed home exercise program and formal PT for at least 6 weeks without lasting relief. documented in this encounter [facility] 05-20-2023 History of Present illness Narrative DATE OF SURGERY 04/02/2023 KIRK Mendoza is now 7 week(s) S/P LEFT KNEE PMM, PLM, CHONDROPLASTY PF JOINT. Physical therapy in progress: yes Using narcotic pain medication: No Current problems or concerns: No major issues but she has slightly limited extension and is using one crutch intermittently. She reports some anterior knee pain at the patellofemoral joint. She denies any fevers, chills, night sweats, nausea, vomiting. She denies excessive numbness, tingling, calf pain, chest pain, shortness of breath. She denies erythema, warmth, excessive drainage from the surgical site. PHYSICAL EXAM Left knee Exam: The incisions are benign--clean,dry, and intact with no erythema, warmth, purulent drainage, or other signs of infection. 2+ distal pulses and sensation intact. Effusion / Swelling: trace Range Of Motion: 2-130 Strength: 4/5 with mild quad atrophy Calf Pain: No ASSESSMENT 7 week(s) S/P LEFT KNEE PMM, PLM, CHONDROPLASTY PF JOINT PLAN -Surgical findings and procedures were reviewed with the patient -PT per General Debridement Arthroscopy protocol -WILMA for swelling control -Follow up in 6 weeks Chief Complaint Patient presents with Left Knee - Post Op Visit 7 weeks s/p Left knee PMM, PLM, chondroplasty. DOS 04/02/23.. PT 2-3x weekly. Unable to get knee fully straight. Ambulates with one crutch when out of the house. DATE OF SURGERY 04/02/2023 KIRK Mendoza is now 7 week(s) S/P LEFT KNEE PMM, PLM, CHONDROPLASTY PF JOINT. Physical therapy in progress: yes, has been somewhat delayed with the holiday season, doing home exercises Using narcotic pain medication: No Current problems or concerns: concerned she cannot get her knee straight on the L. States pain is much better than prior to surgery. States she is having trouble getting it completely straight. Still using a crutch with almost all mobilization due to difficulties with balance and strength. Still having difficulties with steps unassisted. Thinks this is due to strength. She denies any fevers, chills, night sweats, nausea, vomiting. She denies excessive numbness, tingling, calf pain, chest pain, shortness of breath. She denies erythema, warmth, excessive drainage from the surgical site. PHYSICAL EXAM Left knee Exam: The incisions are benign--clean,dry, and intact with no erythema, warmth, purulent drainage, or other signs of infection. 2+ distal pulses and sensation intact. Effusion / Swelling: minimal compared to contralateral side. Range Of Motion: 3-140 Strength: strength is good, needs to work on stamina Calf Pain: No No patella apprehension No joint line tenderness No pain with mcmurrays ASSESSMENT 7 week(s) S/P LEFT KNEE PMM, PLM, CHONDROPLASTY PF JOINT. Did not start PT until after her first follow up appt. Has only done a couple PT sessions due to the holidays. Overall, reports she does not feel the most confident using her knee. Still using a crutch and has some discomfort with prolonged use. Overall we are happy with her progress. PLAN Encouraged physical therapy and home exercises Discussed using the crutch less and less with ambulation. -Surgical findings and procedures were reviewed with the patient -PT per General Debridement Arthroscopy protocol -WILMA for swelling control -Follow up 6 weeks Marcial Amor MD Orthopaedic Surgery PGY-2 documented in this encounter [facility] 04-15-2023 History of Present illness Narrative Chief Complaint Patient presents with Left Knee - Post Op Visit 13d S/p Left knee arthroscopy with PMM and PLM, chondroplasty of the PF joint (dos: 04/02/23). Reports the knee is doing well and has not had pain following sx, did not need any pain meds. Reports the stiches are uncomfortable and has some clicking/catching that is uncomfortable for a moment. Denies signs of infection or DVT. Tx: aspirin but missed the last 2 days, FWB at home and uses crutches when out and about. DATE OF SURGERY 04/02/2023 KIRK Mendoza is now 2 week(s) S/P LEFT KNEE PMM, PLM, CHONDROPLASTY PF JOINT. Physical therapy in progress: No Using narcotic pain medication: No Current problems or concerns: No major issues. She denies any fevers, chills, night sweats, nausea, vomiting. She denies excessive numbness, tingling, calf pain, chest pain, shortness of breath. She denies erythema, warmth, excessive drainage from the surgical site. PHYSICAL EXAM Left knee Exam: Sutures removed and steri-strips applied. The incisions are benign--clean,dry, and intact with no erythema, warmth, purulent drainage, or other signs of infection. 2+ distal pulses and sensation intact. Effusion / Swelling: mild Range Of Motion: 0-120 Strength: Poor with quad Calf Pain: No ASSESSMENT 2 week(s) S/P LEFT KNEE PMM, PLM, CHONDROPLASTY PF JOINT PLAN -Surgical findings and procedures were reviewed with the patient -PT per General Debridement Arthroscopy protocol -WILMA for swelling control -Follow up 1 month documented in this encounter [facility] 04-02-2023 Miscellaneous Notes Discharge instructions reviewed at bedside with pt and pt's mom. All rx sent to pt's preferred pharmacy by provider. All questions answered at this time and understanding voiced. IV removed without complication. Pt verbalizes readiness to discharge home. Chris Coombs ([id number]) PRE OPERATIVE DIAGNOSIS Tear of meniscus of left knee, unspecified meniscus, unspecified tear type, unspecified whether old or current tear [S83.207A] POST OPERATIVE DIAGNOSIS Post-Op Diagnosis Codes: * Tear of meniscus of left knee, unspecified meniscus, unspecified tear type, unspecified whether old or current tear [S83.207A] PROCEDURE PERFORMED Procedure(s) (LRB): LEFT KNEE---MENISCUS SURGERY, PARTIAL MENISCECTOMY VS REPAIR (Left) SURGEON Surgeon(s) and Role: * Brian Rivera MD - Primary ANESTHESIOLOGIST Anesthesiologist: Scooter Don MD HOME ENERGY CONSULTANT: Rhona Carter APRN-HOME ENERGY CONSULTANT SURGICAL STAFF Gin Feeder: June White RN Scrub Person: Marian Norton Resident Assisting: Akira Sue MD COMPLICATIONS None ESTIMATED BLOOD LOSS < 30 ml SPECIMENS No specimen sent * No specimens in log * Brian Rivera MD April 02, 2023 1:04 PM documented in this encounter [facility] 04-02-2023 Nurse Note Discharge instructions reviewed at bedside with pt and pt's mom. All rx sent to pt's preferred pharmacy by provider. All questions answered at this time and understanding voiced. IV removed without complication. Pt verbalizes readiness to discharge home. [facility] 04-02-2023 Nurse Surgical operation note Pt transported to PACU via cart. Report given to CHRIS Cerda [facility] 04-02-2023 Nurse Note Pt transported to PACU via cart. Report given to CHRIS Cerda documented in this encounter [facility] 04-02-2023 Surgery Postoperative evaluation and management note Chris Coombs ([id number]) PRE OPERATIVE DIAGNOSIS Tear of meniscus of left knee, unspecified meniscus, unspecified tear type, unspecified whether old or current tear [S83.207A] POST OPERATIVE DIAGNOSIS Post-Op Diagnosis Codes: * Tear of meniscus of left knee, unspecified meniscus, unspecified tear type, unspecified whether old or current tear [S83.207A] PROCEDURE PERFORMED Procedure(s) (LRB): LEFT KNEE---MENISCUS SURGERY, PARTIAL MENISCECTOMY VS REPAIR (Left) SURGEON Surgeon(s) and Role: * Brian Rivera MD - Primary ANESTHESIOLOGIST Anesthesiologist: Scooter Don MD HOME ENERGY CONSULTANT: Rhona Carter APRN-HOME ENERGY CONSULTANT SURGICAL STAFF Gin Feeder: June White RN Scrub Person: Marian Norton Resident Assisting: Akira Sue MD COMPLICATIONS None ESTIMATED BLOOD LOSS < 30 ml SPECIMENS No specimen sent * No specimens in log * Brian Rivera MD April 02, 2023 1:04 PM [facility] 04-02-2023 Hospital Discharge instructions JENNIFER Wick - 04/02/2023 12:19 PM EST KNEE ARTHROSCOPY POSTOPERATIVE INSTRUCTIONS POSTOPERATIVE APPOINTMENT The first postoperative appointment is typically 8-15 days following surgery. Call the office at [phone] if you are unsure of the date and time of your first postoperative appointment. Please note - as a standard part of your postoperative care you will be seeing a mix of the Physician or the Physician Talent Development Consultant (PA) for your follow up visits. The Physician Talent Development Consultant is a healthcare professional who serves as an integral part of the surgical team, and has hands-on involvement in your surgical procedure. WEIGHT BEARING STATUS WEIGHT BEARING TOLERATED WITH CAUTION Use crutch assistance as needed while you adjust to post-surgical pain, swelling, and muscle weakness. DRESSINGS / WOUND CARE Leave dressings on for 3 days following surgery. You may then remove the dressings and apply bandaids over the incisions. Do not use bandaids that form a complete seal on the skin all the way around the incisions to allow for some breathability. Some bleeding after surgery is very normal - do not be alarmed if some soaks through the dressings. Keep the incisions clean and dry - do not apply any creams or ointments. Do not remove your sutures. They will be removed in clinic at the appropriate time. SHOWERING / BATHING You may shower 3 days following surgery. Use something to cover the surgical area for a few days, such as saran wrap, to prevent soaking the incisions. No complete submersion of the surgical area in a bath tub, hot tub, pool, etc. until at least 2 weeks out from surgery. PAIN MANAGEMENT You will receive a prescription for pain medication the day of surgery--take as directed. Pain medications generally are not refilled after the initial prescription. Common side effects are nausea, drowsiness, and constipation. Consider taking the medication with food. Try an [id number]-etrnvps stool softener such as Colace or progress to a laxative such as Milk of Magnesia or Miralax for constipation if necessary. Do not operate a motor vehicle or heavy machinery while on narcotic pain medication. Do not consume alcohol while on narcotic pain medication. You may supplement your pain medication with Tylenol (up to 1000 mg every 6 hours) and ibuprofen (up to 800 mg every 8 hours) if you need additional help with pain control. NERVE BLOCK: As part of your postoperative pain management you may have received a nerve block. It can be normal to experience some numbness or tingling in the affected area for several days. Use caution with weight bearing as your muscles may not be fully functional increasing the risk of a fall. PHYSICAL THERAPY & HOME EXERCISES If you were given home exercises to do, begin these the day after surgery. You will receive a prescription for physical therapy. Consider where you will want to make arrangements for physical therapy. You can plan to start this approximately 1 week following the surgery. IF DOING PT OUTSIDE OF [facility], YOU MUST BRING YOUR PHYSICAL THERAPY PRESCRIPTION TO YOUR APPOINTMENT OR THE THERAPIST WILL NOT BE ABLE TO TREAT YOU. Most procedures have a specific PT protocol with guidelines for progression. The protocol for your PT can be accessed on the [facility] Sports Medicine website (Google search [facility] rehab protocols ). Alternatively, we can provide a copy of the appropriate protocol at your postoperative appointment to give to your therapist. Stiffness and discomfort are common after surgery. Try to work through this to continue your exercises as they are important for recovery and may help your symptoms. OTHER IMPORTANT POINTS Use your crutches as directed paying close attention to your prescribed weight bearing status. Try to keep your leg elevated and ice consistently--ideally 20 minutes on, 40 minutes off as often as you can throughout the day. This will help some with pain and swelling. Avoid long periods of sitting, bed rest, or travel for the first two weeks after surgery as this can contribute to developing blood clots. Do not drive until cleared by your physician. The effects of anesthesia may linger after your surgery and can cause drowsiness, nausea, and vomiting. Do not make important decisions within the next 24 hours. EMERGENCY CARE Contact Dr. Rivera's office ([phone]) if you experience any of the following: Calf pain, chest pain, or shortness of breath that does not go away. Fever over 101 degrees (low-grade fever after surgery is not uncommon) Spreading redness, pus-like drainage, or excessive bloody drainage from incisions Painful swelling or numbness Unrelenting pain Excessive nausea or vomiting For after-hours emergencies--call the main office number at [phone] to contact the on-call orthopedic physician. IF ANY OF THE ABOVE ISSUES CONTINUE TO ESCALATE OUT OF CONTROL GO TO THE NEAREST EMERGENCY ROOM SOON POSSIBLE. documented in this encounter [facility] 04-02-2023 History and physical note Chris is seen and evaluated this morning. She denies any recent health changes. She has been NPO since midnight. PE- Heart: Regular rate and rhythm. Lungs: Clear in all daniel. Assessment: Left knee medial and lateral meniscus tears Plan: 1) NPO 2) Surgical site signed. 3) To OR for left knee arthroscopy. [facility] Work Phone: 04-02-2023 History and physical note Chris is seen and evaluated this morning. She denies any recent health changes. She has been NPO since midnight. PE- Heart: Regular rate and rhythm. Lungs: Clear in all daniel. Assessment: Left knee medial and lateral meniscus tears Plan: 1) NPO 2) Surgical site signed. 3) To OR for left knee arthroscopy. documented in this encounter [facility] 03-04-2023 History of Present illness Narrative CHIEF COMPLAINT left knee pain HISTORY OF PRESENT ILLNESS Chris is a 47 y.o. female who presents today for evaluation of Left knee. 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 The symptoms have been present for 3 month(s). Onset: sudden Pain location: medial Pain severity: moderate Pain character: aching to sharp Numbness/Tingling: No Mechanical symptoms: catching Effusions: Yes Instability: Yes Alleviating factors/Treatments tried: ice, sleeve, NSAIDs Aggravating factors: kneeling, squatting, stairs. 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 REVIEW OF SYSTEMS leftGeneral ROS: negative for - chills, fever or night sweats Respiratory ROS: no cough, shortness of breath, or wheezing Cardiovascular ROS: no chest pain or dyspnea on exertion Musculoskeletal ROS: positive for - generalized left knee joint pain. Neurological ROS: no TIA or stroke symptoms Skin/ integumentary ROS: no generalized rashes, no generalized erythema, no open lesions PHYSICAL EXAMINATION Vitals: 03/04/23 1110 Weight: 89.6 kg (197 lb 9.6 oz) Height: 1.727 m (5' 8 ) Physical examination does reveal a healthy appearing 47 y.o. female in no acute distress. She does have symmetric pulses in her bilateral upper extremities and lower extremities. She has good skin turgor in her bilateral upper extremities and lower extremities. She has symmetric light touch sensation in her bilateral upper extremities and lower extremities. Right Knee Exam: Full range of motion and strength. There are no areas of tenderness. The instability examination is negative. Left Knee Exam: Range Of Motion: 3 to 120 Crepitus: Negative Effusion: large Quad strength: good Tender to palpation over: Medial and lateral joint lines Kymberly: Positive Pedrito: Negative Anterior Drawer: Negative Posterior Drawer: Negative Valgus Stress: Negative Varus Stress: Negative Squat test: positive Thessaly test: positive Patellar apprehension test: negative Patellar tilt test: negative J-sign: negative IMAGING Xrays Left knee from an OSH indicates: Normal overall alignment with moderate effusion. No acute osseous abnormality. Left knee MRI from an OSH indicates: Large effusion, medial and lateral meniscus tears. Chondrocalcinosis and chondrosis of the PF joint and medial compartment. IMPRESSION Left knee chronic pain and effusion with complex medial and lateral meniscus tears. PLAN 1) RICE and NSAIDs as needed for pain and swelling. 2) Caution with kneeling and squatting. 3) Because of her pain and mechanical symptoms that seem to be a bother for her , and because she has failed a significant course of non-operative treatment, I do recommend that she undergo Left knee arthroscopy with partial medial and lateral meniscectomy. She understands the risks and benefits of the procedure. The risks include but are not limited to bleeding, infection, damage to nerves and vessels, continued pain due to underlying arthritis, continued mechanical symptoms, continued instability, stiffness of the knee, chance that he would be no better and could be worse after surgery, potential for the formation of blood clots, and potential for . She understands the risks and would like to proceed with surgery. She understands that with underlying OA, there is a potential that the knee scope will not make her pain any better afterwards. She understands this but feels that she has tried all other non-operative alternatives and would like to proceed with surgery understanding this risk. We will schedule her at the next available time. All questions were answered today and informed consent was obtained from the patient. She was encouraged to contact our office should she have any further questions prior to the procedure. documented in this encounter [facility] 02-06-2023 Evaluation note Encounter Date Diagnosis Assessment Notes Jan, Acute medial meniscus tear of left knee, initial encounter (ICD-10 - S83.242A) Xray and MRI reviewed in detail with patient as medial meniscal tear, bone edema and likely chondral defect. Discussed treatment as arthroscopy wiwth medial meniscectomy. We will plan on arthroscopy and medial menisectemy. We have discussed continued non-operative treatments including gentle exercise, use of medications and activity modification. Patient states that they would like to proceed with surgery at this time. We discussed the surgery process in detail including nothing by mouth 8 hrs prior to sugery, thorough washing of leg pior to coming to surgery. We discussed the multiple potential risks of anesthesia including respiratory, cardiac and patient positioning issues. We discussed the multiple risks of surgery particularly wound infection, deep venous thrombosis(DVT), persistent swelling, pain and stiffness after surgery, as well as worsening of pre-existing arthritic symptoms. Patient has agreed to understanding of these risks and would like to proceed. Stressed the importance of motion exercises both pre and post op for patient to have best recovery possible. Jan, Contusion of bone (ICD-10 - T14.8XXA) Jan, Pre-op exam (ICD-10 - Z01.818) [facility] Other Evaluation + Plan note Future Appointments Appointment Date:01/24/2023 11:00:00 AM Scheduled Provider: Location:[facility] Diagnosis Tear of meniscus of left knee, unspecified meniscus, unspecified tear type, unspecified whether old or current tear- Primary Left knee pain, unspecified chronicity [facility] Left knee pain, unspecified chronicity Tear of meniscus of left knee, unspecified meniscus, unspecified tear type, unspecified whether old or current tear [facility] Diagnosis Tear of medial meniscus of left knee, unspecified tear type, unspecified whether old or current tear, subsequent encounter- Primary [facility] Diagnosis S/P knee surgery- Primary Other postprocedural status Tear of medial meniscus of left knee, unspecified tear type, unspecified whether old or current tear, subsequent encounter Tear of lateral meniscus of left knee, unspecified tear type, unspecified whether old or current tear, subsequent encounter [facility] Diagnosis S/P knee surgery- Primary Other postprocedural status [facility] Diagnosis S/P knee surgery- Primary Other postprocedural status Localized osteoarthritis of left knee Quadriceps weakness [facility] assessment information available [facility] Work Phone: Hospital course Narrative No data available for this section [facility] No data available for this section [facility] No data available for this section [facility] Summary Purpose Family History No Family History Records FoundNo Family History Records FoundNo Family History Records FoundNo Family History Records Found Advance Directives No Advanced Directives Records Found Advance Directive Response Recorded Date/ Time Advance Directives No April 24, 2023 10:09am Reason for Referral Specialty Diagnoses / Procedures Referred By Contac t Referred To Contact Diagnoses Localized osteoarthritis of left knee Brian Rivera MD [address] [facility] [address] [place] [address] Referral ID Status Reason Start Date Expiration Date V isits Requested Visits Authorized [id number] New Request 07/01/2023 07/25/2024 1 1 Specialty Diagnoses / Procedures Referred By Contac t Referred To Contact Physical Therapy Diagnoses Tear of medial meniscus of left knee, unspecified tear type, unspecified whether old or current tear, subsequent encounter Nani Bejarano, PAC [address] [place] [address] Referral ID Status Reason Start Date Expiration Date V isits Requested Visits Authorized [id number] New Request 04/02/2023 04/26/2024 1 1 Scheduling Instructions [facility] [place] [facility] [address] [place] [address] [place] [address] Fax [facility] ([facility]) [address] [place] [address] FAX [facility] [address] [place] [address] FAX [facility] [place] [address], [address] [place] [address] FAX [facility] [place] [address] [place] [address] FAX [facility] [address] [facility], [address] [place] [address] [phone] FAX [facility] [address] [place] [address] [phone] FAX Outpatient Rehabilitation Outpatient [facility] [address], [address] [place] [address] [phone] FAX [facility] [address], [address] [place] [address] [phone] FAX [facility] at [address], Room: [address] [address] FAX [facility] [place] [address] [facility], [address] [place] [address] FAX [facility] [address] [place] [address] [phone] FAX [facility] [place] [address], [address] [place] [address] [phone] FAX [facility] [address] [facility], [address] [place] [address] [phone] FAX Outpatient Rehabilitation [facility] [place] [address], [address] [place] [address] FAX [facility] [address] [facility], [address] [place] [address] [phone] FAX [facility] [place] [address] [facility] [facility], [place] [address] [phone] FAX [facility] [address] [place] [address] [phone] FAX Outpatient Rehabilitation Outpatient [facility] [address], [address] [place] [address] [phone] FAX [facility] [address] [place] [address] [phone] FAX [facility] [address] [place] [address] FAX [facility], Room [address] [place] [address] [phone] FAX Specialty Diagnoses / Procedures Referred By Tae singh Referred To Contact Diagnoses Left knee pain, unspecified chronicity Procedures XR KNEE LEFT WITH BILATERAL STANDING 1 VIEW Doug Triana, [facility] [address] [place] [address] Referral ID Status Reason Start Date Expiration Date Visits Re quested Visits Authorized [id number] Closed 03/03/2023 03/27/2024 1 1 Chief Complaint and Reason for Visit Chief Complaint L knee post op Additional Source Comments INFORMATION SOURCE (unrecogn ized section and content) DATE CREATED AUTHOR 07/06/2021 [facility] DATE CREATED AUTHOR AUTHOR'S ORGANIZ ATION 03/26/2023 [facility] DATE CREATED AUTHOR AUTHOR'S ORGANIZ ATION 08/04/2023 [facility] DATE CREATED AUTHOR AUTHOR'S ORGANIZ ATION 08/15/2023 [facility] Patient Care team informatio n (unrecognized section and content) Team Status: Active Member Role Status Dates Shun Savage MD Primary Care Provider Active Team Status: Inactive Member Role Status Dates Brian Rivera MD Attending Provider Active Start: June 02, 2023 End: June 02, 2023 Shun Savage MD Primary Care Provider Active Start: June 02, 2023 End: June 02, 2023 REASON FOR VISIT (unrecogniz ed section and content) Reason Comments Pain Left knee pain x 3 m onths, stepped 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 Had instant sharp pain and burning. Has been seen by another ortho doctor but they cancelled her sx 3 times with no follow up communication. Pain is constant and agg by the end of the day or with a wrong step, feels unstable and like it will buckle. Prev hx of reconstructive knee sx at age 16 from a volleyball injury. Tx: ja DILLON regularly (wondering if she should switch to motrin) Specialty Diagnoses / Procedures Referred By Tae singh Referred To Contact Diagnoses Left knee pain, unspecified chronicity Procedures XR KNEE LEFT WITH BILATERAL STANDING 1 VIEW Doug Triana, [facility] [address] [place] [address] Referral ID Status Reason Start Date Expiration Date Visits Re quested Visits Authorized [id number] Closed 03/03/2023 03/27/2024 1 1 Specialty Diagnoses / Procedures Referred By Tae singh Referred To Contact Diagnoses Tear of meniscus of left knee, unspecified meniscus, unspecified tear type, unspecified whether old or current tear Tear of meniscus of left knee, unspecified meniscus, unspecified tear type, unspecified whether old or current tear [S83.207A] Procedures NC ARTHRS KNE SURG W/MENISCECTOMY MED/LAT W/SHVG ARTHROSCOPY KNEE W/ MENISCECTOMY Brian Rivera MD [address] [place] [address] [facility] [address] [place] [address] Referral ID Status Reason Start Date Expiration Date Visits Re quested Visits Authorized [id number] 1 1 Reason Comments Post Op Visit 13d S/p Left knee ar throscopy with PMM and PLM, chondroplasty of the PF joint (dos: 04/02/23). Reports the knee is doing well and has not had pain following sx, did not need any pain meds. Reports the stiches are uncomfortable and has some clicking/catching that is uncomfortable for a moment. Denies signs of infection or DVT. Tx: aspirin but missed the last 2 days, FWB at home and uses crutches when out and about. Reason Comments Post Op Visit 7 weeks s/p Left kne e PMM, PLM, chondroplasty. DOS 04/02/23.. PT 2-3x weekly. Unable to get knee fully straight. Ambulates with one crutch when out of the house. Reason Comments Post Op Visit 3 month s/p left kne e PMM, PLM, chondroplasty. DOS 04/02/23. Ambulates with a limp, difficulty getting knee straight. Has not been in PT Scheduled Active and Recently Administ ered Medications (unrecognized section and content) Medication Order 03/31/2023 04/01/2023 04/02/2023 Acetaminophen (TYLENOL) tablet 975 mg (COMPLETED) 975 mg, Oral, ONCE, 1 dose, On Fri04/02/23 at 1030, Pre-op/Pre-Proc 1037 (Given - Provid er: David Murrieta RN) Continuous Medication Order 03/31/2023 04/01/2023 04/02/2023 Lactated ringers IV solution Intravenous, at 50 mL/hr, CONTINUOUS, Starting on Fri04/02/23 at 1045, Until Fri04/02/23 at 1809 1045 (Canceled Entry - Provider: System Discharge - Comment: Automatically canceled at discontinue of medication order) PRN Medication Order 03/31/2023 04/01/2023 04/02/2023 ceFAZolin (ANCEF) 2 g in dextrose 100 mL premix IVPB (COMPLETED) 2 g, Intravenous, Administer over 30 Minutes, BLANKET INSPECTOR TO PROCEDURE, 1 dose, Starting on Fri04/02/23 at 0946, Until Discontinued, Other, -ANTIBIOTICS ARE TO BE STARTED 15-60 MINUTES PRIOR TO INCISION, Pre-op/Pre-Proc 1229 (Given - Provid er: Rhona Carter APRN-HOME ENERGY CONSULTANT) fentaNYL (SUBLIMAZE) injection 25 mcg 25 mcg, Intravenous, Administer over 2 Minutes, EVERY 10 MINUTES NEEDED, Starting on Fri04/02/23 at 1323, Until Fri04/02/23 at 1809, Moderate Pain, Recovery 1333 (Given - Provid er: Zaida Quiñonez RN)1348 (Given - Provider: Zaida Quiñonez RN) Haloperidol lactate (HALDOL) injection 1 mg 1 mg, Intravenous, ONCE NEEDED, 1 dose, Starting on Fri04/02/23 at 1323, Until Fri04/02/23 at 1809, Refractory Nausea/vomiting, Use if patient still experiencing nausea/vomiting after 1st and 2nd line medications. Do not administer within 6 hours of intra-operative dose., Recovery hydrALAZINE (APRESOLINE) injection 2 mg 2 mg, Intravenous, EVERY 30 MINUTES NEEDED, Starting on Fri04/02/23 at 1323, Until Fri04/02/23 at 1809, SECOND line HTN, For SBP > 170 Use if HR < 60 or if patient has reactive airway disease. Administer over 2 minutes. May give a total of 20 mg while in PACU. Notify MD if BP still uncontrolled after 2 mg and no other antihypertensive agents are ordered., Recovery HYDROmorphone (DILAUDID) injection 0.2 mg 0.2 mg, Intravenous, EVERY 10 MINUTES NEEDED, 10 doses, Starting on Fri04/02/23 at 1323, Until Fri04/02/23 at 1809, Moderate Pain, Severe Pain, May give a total of 2mg in PACU., Recovery Labetalol (NORMODYNE) injection 5 mg 5 mg, Intravenous, EVERY 15 MINUTES NEEDED, Starting on Fri04/02/23 at 1323, Until Fri04/02/23 at 1809, FIRST line HTN. , For SBP > 170 Hold if HR < 60 or patient has reactive airway disease and give SECOND line agent. May give a total of 20 mg while in PACU. If blood pressure uncontrolled after 20mg of labetalol administered, use second line agent or notify MD. For vials: labetalol should be treated as a SINGLE USE VIAL. Discard remaining contents after one use., Recovery Lidocaine-epinephrine 1%-1:[id number] injection (CANCELED) NEEDED, Starting on Fri04/02/23 at 1238, Until Fri04/02/23 at 1311, Intra-op/Intra-Proc 1238 (Given - Provid er: Brian Rivera MD) Meperidine (DEMEROL) injection 12.5 mg 12.5 mg, Intravenous, ONCE NEEDED, 1 dose, Starting on Fri04/02/23 at 1323, Until Fri04/02/23 at 1809, Rigors, Shivering, May give total of 2 doses while in PACU. Keep respiratory rate greater than 10., Recovery Ondansetron 4mg/2ml (ZOFRAN) injection 4 mg 4 mg, Intravenous, ONCE NEEDED, 1 dose, Starting on Fri04/02/23 at 1323, Until Fri04/02/23 at 1809, Nausea / Vomiting, FIRST line antiemetic, Do not administer within 6 hours of intra-operative dose., Recovery traMADol (ULTRAM) tablet 50 mg (COMPLETED) 50 mg, Oral, ONCE NEEDED, 1 dose, Starting on Fri04/02/23 at 1323, Until Fri04/02/23 at 1331, Moderate Pain, Recovery 1331 (Given - Provid er: Zaida Quiñonez RN) Goals (unrecognized section and content) Goals may be documented in a n alternate section FOR RECORDS PERTAINING TO PATIENTS WHO ARE OR HAVE BEEN ENROLLED IN A CHEMICAL DEPENDENCY/SUBSTANCEABUSE PROGRAM, SOME INFORMATION MAY BE OMITTED. This clinical summary was aggregated from multiple sources. Caution should be exercised in using it in the provision of clinical care. This summary normalizes information from multiple sources, and as a consequence, information in this document may materially change the coding, format and clinical context of patient data. In addition, data may be omitted in some cases. CLINICAL DECISIONS SHOULD BE BASED ON THE PRIMARY CLINICAL RECORDS. [facility]. provides no warranty or guarantee of the accuracy or completeness of information in this document.
--- NOTE | 2024-01-10 08:08 | US_ITS ---
The [address] [address] Patient Name: CHRIS SAENZ MRN: [id number] date: 1975 Sex: F Assigned Patient Location: US Current Patient Location: Accession/Order Number: [id number] Exam Date: 01/10/2024 08:09 Report Date: 01/12/2024 07:06 At the request of: MICHELLE HICKEY Procedure: US right upper quadrant EXAM: US right upper quadrant HISTORY: RIGHT UPPER QUADRANT PAIN COMPARISON: 01/04/2024 TECHNIQUE: Grayscale and color FINDINGS: The liver is normal in size, contour and echotexture. Hepatopedal flow in the main portal vein with a velocity of 29 cm/s. No focal hepatic mass. The gallbladder is normal in appearance. The wall measures 1.3 mm. Negative sonographic Cox sign. Common bile duct measures 5 mm. The visualized pancreatic body is mildly heterogeneous in echotexture with no focal mass. Pancreatic duct is mildly enlarged measuring 3.8 mm. The right kidney is normal measuring 11.2 x 5.0 x 7.3 cm. US/US right upper quadrant IMPRESSION: Mildly heterogeneous pancreatic echotexture with dilation of the pancreatic duct, consider early or mild pancreatitis Electronically authenticated by: SILVER WHALEY Date: 01/12/2024 07:06
== END 2024-01-10 07:59 | disposition home or self-care (01) ==
LOC: US 08:00
PROVIDERS: PCP Family Medicine; Visit Provider Family Medicine
DX: R10.11 Right upper quadrant pain (principal)
CPT/HCPCS: 76705